=== PATIENT | female | born 1965 | race Caucasian/White ===

== ENCOUNTER 2020-11-07 09:14 | Outpatient (CLI) | payer OTHER | END 2020-11-07 09:15 | disposition home or self-care (01) | LOC: NAV RAD 09:14 | PROVIDERS: ATTEND Family Medicine | DX: M25.512 Pain in left shoulder (principal); M25.561 Pain in right knee; M54.5 Low back pain; M47.816 Spondylosis without myelopathy or radiculopathy, lumbar region; M17.11 Unilateral primary osteoarthritis, right knee; M19.012 Primary osteoarthritis, left shoulder | CPT/HCPCS: 72100 ==